=== PATIENT | female | born 2000 | race Caucasian/White ===

== ENCOUNTER 2019-03-16 19:14 | Emergency (ER) | payer OTHER ==
--- NOTE | 2019-03-16 19:20 | ED Physician Documentation ---
Headache - HISTORIAN Historian: patient - HPI Stated Complaint: headache Chief Complaint: Headache Onset: days ago (3) Timing: still present New Gradual Onset: Yes Exposure To: none Severity: mild (3-4/10 scale ) Associated Symptoms: sensitivity to light, neck pain. denies: fever, chills, sweating, problems with vision, nausea, vomiting, stiffness, speech problems, weakness, trouble walking, tingling, numbness, dizziness, light-headedness, other Preceding Symptoms: denies: visual disturbance Exacerbated By: light, noise Further Comments: yes (she states she started with headache and sinus congestion on Sat. No fever. No injury. Denies any N/V. She did take Ibuprofen a few times and this mildly helped the headache. Last dose was at 1130 am. No rash. No other complaints. She reports migraines in the past.) - ROS NEURO/PSYCH: denies: confusion, anxiety, depression, fainting EYES/ENT: sinus pain. denies: sore throat, difficulty swallowing CVS/RESP: none - PAST HX Medical History: no pertinent history Allergies/Adverse Reactions: Allergies Allergy/AdvReac Type Severity Reaction Status Date / Time No Known Drug Allergies Allergy Verified 03/16/19 20:24 Home Medications: Ambulatory Orders Medication Instructions Recorded Albuterol Sulfate [Proventil Hfa] #6 04/05/16 Citalopram Hydrobromide 20 mg PO DAILY u2 01/09/18 [Citalopram Hbr] - SOCIAL HX Smoking History: non-smoker Alcohol Use: none Drug Use: none - Family HX Family History: none - VITAL SIGNS Vital Signs: Vital Signs Temp Pulse Resp BP Pulse Ox 99.6 F 88 16 121/64 100 03/16/19 19:14 03/16/19 19:14 03/16/19 19:14 03/16/19 19:14 03/16/19 19:14 - REVIEWED ASSESSMENTS Nursing Assessment Reviewed: Yes Vitals Reviewed: Yes Progress - Progress Progress: 2054: states pain is resolved . Is asking to leave to go eat. Discussed plan and she and mom are agreeable DG ED Results Lab/Radiology - Lab Results Lab Results: Lab Results 03/16/19 03/16/19 19:40 19:40 WBC 7.30 K/ul K/ul (4.00-12.00) RBC 4.51 M/ul M/ul (3.90-5.20) Hgb 14.4 g/dL g/dL (11.5-16.0) Hct 43.1 % % (34.5-46.5) MCV 96.0 fl fl (80.0-100.0) MCH 32.0 pg pg (28.0-34.0) MCHC 33.5 g/dL g/dL (30.0-36.0) RDW 12.0 % % (11.3-14.3) Plt Count 231 K/mm3 K/mm3 (130-400) Neut % (Auto) 49.0 % % (39.0-79.0) Lymph % (Auto) 45.1 % % (16.0-50.0) [place] % (Auto) 4.3 % % (0.0-11.0) Eos % (Auto) 1.1 % % (0.0-6.8) Baso % (Auto) 0.5 % % (0.0-1.5) Neut # (Auto) 3.6 # k/uL # k/uL (1.4-7.7) Lymph # (Auto) 3.3 # k/uL # k/uL (0.6-4.0) [place] # (Auto) 0.3 # k/uL # k/uL (0.0-0.9) Eos # (Auto) 0.1 # k/uL # k/uL (0.0-0.6) Baso # (Auto) 0.0 # k/uL # k/uL (0.0-0.5) Sodium 141 mmol/L mmol/L (137-145) Potassium 3.9 mmol/L mmol/L (3.5-5.1) Chloride 106 mmol/L mmol/L (98-107) Carbon Dioxide 25 mmol/L mmol/L (22-30) BUN 10 mg/dL mg/dL (7-17) Creatinine 0.64 mg/dL mg/dL (0.52-1.04) Estimated Creat Clear 133 Est GFR ( Amer) > 60 (60 - ) Est GFR (Non-Af Amer) > 60 (60 - ) Glucose 89 mg/dL mg/dL (74-106) Calcium 9.7 mg/dL mg/dL (8.4-10.2) Total Bilirubin 0.3 mg/dL mg/dL (0.2-1.3) AST 21 U/L U/L (15-46) ALT 13 U/L U/L (13-69) Alkaline Phosphatase 45 U/L U/L (38-126) Total Protein 8.2 g/dL g/dL (6.3-8.2) Albumin 5.1 g/dL H g/dL (3.5-5.0) - Orders Orders: ED Orders Category Date Time Status IV Started NOW Care 03/16/19 19:40 Active CBC/PLATELET/DIFF Stat Lab 03/16/19 19:40 Completed CMP Stat Lab 03/16/19 19:40 Completed URINE HCG Stat Lab 03/16/19 19:14 Ordered 0.9 % Sodium Chloride [Normal Saline] 1,000 ml Med 03/16/19 19:40 Discontinued IV NOW Dexamethasone Sodium Phosphate [Decadron] Med 03/16/19 19:41 Discontinued 2 mg IV NOW ONE Ketorolac Tromethamine [Toradol] Med 03/16/19 19:41 Discontinued 30 mg IV NOW ONE Headache Physical Exam - EXAM General Appearance: no acute distress, alert EENT: no facial swelling, PERRL, pain over sinuses Neck: normal inspection, other (mild pain wiht palpation on right side of lateral neck - muscle spasm felt ) Respiratory: no resp distress, chest non-tender, breath sounds normal CVS: reg. rate & rhythm Abdomen: non-tender Skin: color nml, no rash Extremitites: non-tender, normal range of motion, no evidence of injury, no edema - NEURO/PSYCH Higher Functions: alert, oriented x3, nml speech, mood/affect nml Cranial: nml as tested Cerebellar: nml as tested Sensorimotor: motor nml, sensation nml Discharge Clincal Impression: Migraine Qualifiers: Migraine type: unspecified Status migrainosus presence: without status migrainosus Intractability: not intractable Qualified Code(s): G43.909 - Migraine, unspecified, not intractable, without status migrainosus Referrals: Primary Doctor,No [Primary Care Provider] - 2 Days Additional Instructions: 1. OTC meds as needed as directed for pain 2. Follow up with PCP in 2 days 3. Increase fluids 4. Return to ER for any increasing concerns Condition: Stable Disposition: HOME, SELF-CARE Decision to Admit: NO Date of Decison to Admit: 03/16/19 Decision Time: 20:57
[2019-03-16] MEDS: 0.9 % SODIUM CHLORIDE 1,000 ML IV ONE (20:24)
[2019-03-16] MEDS: DEXAMETHASONE SOD PHOS 4 MG/ML VIAL IV ONE (20:24)
[2019-03-16] MEDS: KETOROLAC TROMETHAMINE 30 MG/1ML VIAL IV ONE (20:24)
[2019-03-16 20:30] LABS: BASOPHILS % 0.5 % (0.0-1.5); NEUTROPHILS # 3.6 # k/uL (1.4-7.7)
[2019-03-16 20:38] LABS: eGFR (Non-African) > 60
[2019-03-16 21:04] VITALS: BP 124/74
== END 2019-03-16 21:04 | disposition home or self-care (01) ==
LOC: ED 19:14
DX: G43.909 Migraine, unspecified, not intractable, without status migrainosus (principal)
CPT/HCPCS: 80053; 81025; 85025; 96361; 96374; 96375; 99283; 99284; J1100; J1885; J7030; S1016